=== PATIENT | female | born 1945 | race Caucasian/White ===

== ENCOUNTER → 2021-12-25 08:39 | Outpatient (CLI) | payer MEDICARE, OTHER, SELFPAY ==
[2021-12-26 09:40] LABS: Candida species Negative (Negative); Gardnerella vaginalis Negative (Negative); Trichomoas vaginalis Negative (Negative)
== END ==
PROVIDERS: PCP Physician Assistant Medical; Visit Provider Physician Assistant
DX: N89.8 Other specified noninflammatory disorders of vagina (principal)
CPT/HCPCS: 87480; 87510; 87660

== ENCOUNTER → 2022-05-12 10:03 | Outpatient (CLI) | payer MEDICARE, OTHER, SELFPAY ==
[2022-05-12 20:36] LABS: Add Manual Diff / Slide Review NO; Basophils Absolute Auto 100 /uL (0-100); Eosinophils Absolute Auto 100 /uL (0-450); Eosinophils Percent Auto 1.7 % (2-4); Hematocrit 37.4 % (36-46); Hemoglobin 12.5 g/dL (12.0-16.0); Lymphocytes Absolute Auto 1600 /uL (1100-4500); Lymphocytes Percent Auto 21.4 % (25-40); Mean Corpuscular HGB Conc 33.4 % (30-36); Mean Corpuscular Hemoglobin 31.5 PG (26-34); Mean Corpuscular Volume 94.3 fL (80-100); Monocytes Absolute Auto 600 /uL (0-900); Monocytes Percent Auto 8.9 % (3-14); Neutrophils Absolute Auto 4900 /uL (1500-7000); Platelet Count 322 X10^3/uL (150-400); Red Blood Cell Count 3.97 X10^6/uL (4.0-5.2); Red Cell Distribution Width 13.9 % (11.6-14.8); White Blood Cell Count 7.3 X10^3/uL (4.5-11.0)
[2022-05-12 20:47] LABS: Alanine Aminotransferase 22 IU/L (<35); Albumin 3.7 g/dL (3.5-5.0); Albumin Globulin Ratio 1.3 (1.0-2.8); Alkaline Phosphatase 87 U/L (38-126); Aspartate Aminotransferase 31 IU/L (14-36); BUN Creatinine Ratio 28.3 (6-22); Bilirubin Total 0.4 mg/dL (0.2-1.3); Blood Urea Nitrogen 26 mg/dL (7-17); Calcium 9.3 mg/dL (8.4-10.2); Carbon Dioxide 27 mmol/L (22-32); Chloride 103 mmol/L (98-107); Estimated Glomerular Filt Rate > 60 mL/min (>60); Globulin 2.9 g/dL (1.7-4.1); Glucose 105 mg/dL (80-110); HEMOLYSIS < 15 (0-50); Lipase 289 U/L (23-300); Potassium 4.2 mmol/L (3.4-5.1); Sodium 139 mmol/L (137-145); Total Protein 6.6 g/dL (6.3-8.2)
[2022-05-15 19:42] LABS: Interpretation Negative (Negative)
== END ==
PROVIDERS: PCP Physician Assistant Medical; Visit Provider Physician Assistant
DX: E86.0 Dehydration (principal); R10.13 Epigastric pain
CPT/HCPCS: 80053; 83013; 83690; 85025

== ENCOUNTER → 2022-06-22 09:36 | Outpatient (CLI) | payer MEDICARE, OTHER, SELFPAY ==
--- NOTE | 2022-06-22 09:41 | DI.US.S_ITS ---
PROCEDURE: US ABDOMEN COMPLETE INDICATIONS: epigastric pain x 3 weeks, hx hiatal hernia TECHNIQUE: Real-time scanning was performed of the abdominal and retroperitoneal organs, with image documentation. COMPARISON: None. FINDINGS: Liver: Liver is normal in size and homogeneous in echotexture. Gallbladder: The gallbladder wall measures 1.4 mm in diameter. No stones, sludge, pericholecystic fluid, or sonographic Levin sign. Biliary ducts: Intrahepatic bile ducts are non-dilated. Extrahepatic bile duct caliber measures 4.6 mm. Normal is 6-7 mm or less in diameter, or 10 mm or less post-cholecystectomy. Pancreas: Visualized portions of the pancreas are sonographically normal. The head and tail of the pancreas are not well characterized. Spleen: Spleen is normal in size and homogeneous in echotexture. Kidneys: Kidneys are normal in size and echotexture. Right kidney measures 9.5 cm long; left kidney measures 8.9 cm long. No hydronephrosis or nephrolithiasis. No solid masses. Aorta: Visualized aorta is normal in caliber at less than 3 cm. Iliacs: Proximal common iliac arteries are normal in caliber at less than 2.5 cm. IVC: Intrahepatic inferior vena cava is patent. Miscellaneous: No free abdominal fluid. IMPRESSION: 1. No cholelithiasis or findings to suggest choledocholithiasis or acute cholecystitis. Dictated by: Debbie Lyn M.D. on 06/22/2022 at 10:44 Approved by: Debbie Lyn M.D. on 06/22/2022 at 10:45
== END ==
PROVIDERS: PCP Physician Assistant; Referring Provider Physician Assistant; Visit Provider Physician Assistant
DX: R10.13 Epigastric pain (principal); K44.9 Diaphragmatic hernia without obstruction or gangrene
CPT/HCPCS: 76700

== ENCOUNTER → 2022-09-07 12:16 | Outpatient (CLI) | payer MEDICARE, OTHER, SELFPAY ==
[2022-09-07 19:29] LABS: Add Manual Diff / Slide Review NO; Basophils Absolute Auto 0 /uL (0-100); Basophils Percent Auto 0.6 % (0-2); Eosinophils Absolute Auto 100 /uL (0-450); Hematocrit 36.1 % (36-46); Lymphocytes Absolute Auto 1800 /uL (1100-4500); Lymphocytes Percent Auto 24.7 % (25-40); Mean Corpuscular HGB Conc 33.3 % (30-36); Mean Corpuscular Hemoglobin 31.3 PG (26-34); Monocytes Absolute Auto 600 /uL (0-900); Monocytes Percent Auto 8.5 % (3-14); Neutrophils Absolute Auto 4800 /uL (1500-7000); Neutrophils Percent Auto 64.2 % (50-75); Platelet Count 311 X10^3/uL (150-400); Red Blood Cell Count 3.84 X10^6/uL (4.0-5.2); Red Cell Distribution Width 13.4 % (11.6-14.8); White Blood Cell Count 7.5 X10^3/uL (4.5-11.0)
[2022-09-07 19:37] LABS: NT-proBNP (BNP-Adult 18+) 489 pg/mL (<450)
[2022-09-07 19:40] LABS: Alanine Aminotransferase 24 IU/L (<35); Aspartate Aminotransferase 32 IU/L (14-36); Blood Urea Nitrogen 23 mg/dL (7-17)
[2022-09-07 20:06] LABS: Thyroid Stimulating Hormone 2.79 uIU/mL (0.47-4.68)
[2022-09-07 20:10] LABS: Ferritin 43 ng/mL (11-264)
[2022-09-07 20:17] LABS: Erythrocyte Sedimentation Rate 33 MM/HR (0-20)
[2022-09-11 16:48] LABS: ANA Screen, IFA Positive (.)
== END ==
PROVIDERS: PCP Physician Assistant; Visit Provider Physician Assistant Medical
DX: L65.9 Nonscarring hair loss, unspecified (principal); R60.9 Edema, unspecified; L01.01 Non-bullous impetigo; L29.8 Other pruritus
CPT/HCPCS: 82728; 83880; 84443; 84450; 84460; 84520; 85025; 85651; 86038

== ENCOUNTER → 2022-10-14 12:49 | Outpatient (CLI) | payer MEDICARE, OTHER, SELFPAY | PROVIDERS: PCP Physician Assistant; Visit Provider Surgery | DX: R60.0 Localized edema (principal); M71.22 Synovial cyst of popliteal space [Baker], left knee; M71.21 Synovial cyst of popliteal space [Baker], right knee; I87.2 Venous insufficiency (chronic) (peripheral); L97.812 Non-pressure chronic ulcer of other part of right lower leg with fat layer exposed; I10 Essential (primary) hypertension | CPT/HCPCS: 11042; 87070; 87075; 87205; 93970; 99203; 99214 ==

== ENCOUNTER → 2022-10-14 14:21 | Outpatient (CLI) | payer MEDICARE, OTHER, SELFPAY ==
--- NOTE | 2022-10-14 14:22 | DI.US.S_ITS ---
PROCEDURE: US PERIPH VENOUS LOW EXTREM BI INDICATIONS: intermittent edema TECHNIQUE: Real-time imaging, as well as color and pulse Doppler interrogation, were performed of the deep veins of both legs from the inguinal ligament to the popliteal fossa. COMPARISON: None. FINDINGS: Right: The common femoral, femoral and popliteal veins are normally compressible, and free of intraluminal thrombus. Color and pulse Doppler demonstrate normal phasic intravascular flow. There is normal augmentation response to distal compression maneuver. A right-sided Gaviria's cyst is seen that measures 5.6 x 1.4 x 1.2 cm. Left: The common femoral, femoral and popliteal veins are normally compressible, and free of intraluminal thrombus. Color and pulse Doppler demonstrate normal phasic intravascular flow. There is normal augmentation response to distal compression maneuver. A left-sided Gaviria's cyst is seen that measures 4.4 x 1 x 2.6 cm. IMPRESSION: Negative for deep venous thrombosis. 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 Dictated by: Jose Luis Monreal M.D. on 10/14/2022 at 14:07 Approved by: Jose Luis Monreal M.D. on 10/14/2022 at 14:07
== END ==
PROVIDERS: PCP Physician Assistant; Referring Provider Physician Assistant; Visit Provider Physician Assistant
DX: R60.0 Localized edema (principal); M71.22 Synovial cyst of popliteal space [Baker], left knee; M71.21 Synovial cyst of popliteal space [Baker], right knee
CPT/HCPCS: 93970

== ENCOUNTER → 2022-11-24 08:34 | Outpatient (CLI) | payer MEDICARE, OTHER, SELFPAY ==
[2022-11-26 16:35] LABS: Candida species Negative (Negative); Gardnerella vaginalis Negative (Negative); Trichomoas vaginalis Negative (Negative)
== END ==
PROVIDERS: PCP Physician Assistant; Visit Provider Physician Assistant
DX: N89.8 Other specified noninflammatory disorders of vagina (principal)
CPT/HCPCS: 87480; 87510; 87660

== ENCOUNTER → 2023-09-14 10:38 | Outpatient (CLI) | payer MEDICARE, OTHER, SELFPAY ==
[2023-09-14 19:37] LABS: HEMOLYSIS 26 (0-50)
[2023-09-14 19:42] LABS: Alanine Aminotransferase 23 IU/L (<35); Albumin 3.4 g/dL (3.5-5.0); Albumin Globulin Ratio 1.2 (1.0-2.8); Alkaline Phosphatase 95 U/L (38-126); Aspartate Aminotransferase 37 IU/L (14-36); BUN Creatinine Ratio 29.3 (6-22); Bilirubin Total 0.7 mg/dL (0.2-1.3); Blood Urea Nitrogen 27 mg/dL (7-17); Carbon Dioxide 26 mmol/L (22-32); Chloride 104 mmol/L (98-107); Estimated Glomerular Filt Rate > 60 mL/min (>60); Globulin 2.9 g/dL (1.7-4.1); Glucose 117 mg/dL (80-110); Potassium 4.6 mmol/L (3.4-5.1); Sodium 137 mmol/L (137-145); Total Protein 6.3 g/dL (6.3-8.2); Uric Acid 6.1 mg/dL (2.5-6.2)
[2023-09-14 19:50] LABS: Add Manual Diff / Slide Review NO; Basophils Absolute Auto 100 /uL (0-100); Basophils Percent Auto 0.9 % (0-2); Eosinophils Absolute Auto 200 /uL (0-450); Eosinophils Percent Auto 2.2 % (2-4); Hematocrit 34.8 % (36-46); Hemoglobin 11.7 g/dL (12.0-16.0); Lymphocytes Absolute Auto 1600 /uL (1100-4500); Lymphocytes Percent Auto 23.4 % (25-40); Mean Corpuscular HGB Conc 33.6 % (30-36); Mean Corpuscular Hemoglobin 31.8 PG (26-34); Mean Corpuscular Volume 94.7 fL (80-100); Monocytes Absolute Auto 500 /uL (0-900); Monocytes Percent Auto 7.4 % (3-14); Neutrophils Absolute Auto 4500 /uL (1500-7000); Neutrophils Percent Auto 66.1 % (50-75); Platelet Count 265 X10^3/uL (150-400); Red Blood Cell Count 3.67 X10^6/uL (4.0-5.2); Red Cell Distribution Width 13.2 % (11.6-14.8); White Blood Cell Count 6.9 X10^3/uL (4.5-11.0)
[2023-09-14 20:13] LABS: Erythrocyte Sedimentation Rate 32 MM/HR (0-20)
[2023-09-14 20:18] LABS: C-Reactive Protein Quant 0.6 mg/dL (<1.0)
[2023-09-14 20:19] LABS: Rheumatoid Factor 14.5 IU/mL (<12.0)
[2023-09-20 22:07] LABS: ANA Screen, IFA Negative (.)
== END ==
PROVIDERS: PCP Family Medicine; Visit Provider Family Medicine
DX: M25.641 Stiffness of right hand, not elsewhere classified (principal); M25.541 Pain in joints of right hand; M25.542 Pain in joints of left hand; M25.642 Stiffness of left hand, not elsewhere classified; I10 Essential (primary) hypertension
CPT/HCPCS: 80053; 84550; 85025; 85651; 86038; 86140; 86430

== ENCOUNTER → 2023-09-27 14:30 | Outpatient (CLI) | payer MEDICARE, OTHER, SELFPAY ==
[2023-10-01 19:10] LABS: C difficie Toxins A and B, EIA Negative (Negative)
== END ==
PROVIDERS: PCP Family Medicine; Visit Provider Family Medicine
DX: R10.31 Right lower quadrant pain (principal); Z87.19 Personal history of other diseases of the digestive system; R19.7 Diarrhea, unspecified
CPT/HCPCS: 87045; 87324; 87493; 87899

== ENCOUNTER → 2023-10-11 14:15 | Outpatient (CLI) | payer MEDICARE, OTHER, SELFPAY ==
--- NOTE | 2023-10-11 14:17 | DI.CT.S_ITS ---
PROCEDURE: CT ABDOMEN PELVIS W CON INDICATIONS: RLQ abd pain, chronic. h/o crohn's with multiple surgeries TECHNIQUE: After the administration of intravenous contrast, axial sections acquired from the lung bases to the pubic symphysis. Coronal and sagittal reformats were performed. For radiation dose reduction, the following was used: automated exposure control, adjustment of mA and/or kV according to patient size. COMPARISON: None. FINDINGS: Image quality: Excellent. Lung bases: Right middle lobe and lingular atelectasis. Heart: No significant findings. Miscellaneous: Bilateral breast implants are in place. ABDOMEN: Liver: Unremarkable. Gallbladder: Unremarkable. Biliary ducts: Unremarkable. Pancreas: Unremarkable. Spleen: Unremarkable. Adrenal Glands: Unremarkable. Kidneys and Ureters: Unremarkable. Stomach and Bowel: Stomach is unremarkable. No small bowel obstruction. Patent anastomosis at the cecum. Rectosigmoid diverticulosis without CT evidence of acute diverticulitis. Peritoneum: No abnormal intraperitoneal fluid. No free air. Ventral Wall: No hernias. Abdominal Nodes: No retroperitoneal or mesenteric adenopathy by size criteria. Vessels: Aorta and inferior vena cava are normal in size. PELVIS: Pelvic Organs: Unremarkable. Bladder: Unremarkable. Pelvic Nodes: No enlarged lymph nodes. Miscellaneous: No hernias are seen. Bones: No acute or suspicious osseous abnormalities. Grade 1 anterolisthesis of L5 on S1. IMPRESSION: No acute findings in the abdomen or pelvis to explain patient's symptoms. Rectosigmoid diverticulosis without CT evidence of acute diverticulitis. Approved by: Maria Elena Dodd M.D. on 10/11/2023 at 21:48
== END ==
PROVIDERS: PCP Family Medicine; Referring Provider Family Medicine; Visit Provider Family Medicine
DX: K57.30 Diverticulosis of large intestine without perforation or abscess without bleeding (principal); Z87.19 Personal history of other diseases of the digestive system; R10.31 Right lower quadrant pain
CPT/HCPCS: 74177; Q9967

== ENCOUNTER → 2023-10-19 10:09 | Outpatient (CLI) | payer MEDICARE, OTHER, SELFPAY ==
[2023-10-19 20:01] LABS: Add Manual Diff / Slide Review NO; Basophils Absolute Auto 0 /uL (0-100); Basophils Percent Auto 0.7 % (0-2); Eosinophils Absolute Auto 400 /uL (0-450); Eosinophils Percent Auto 7.1 % (2-4); Hematocrit 35.2 % (36-46); Hemoglobin 11.9 g/dL (12.0-16.0); Lymphocytes Absolute Auto 1100 /uL (1100-4500); Lymphocytes Percent Auto 19.4 % (25-40); Mean Corpuscular HGB Conc 33.8 % (30-36); Mean Corpuscular Hemoglobin 32.3 PG (26-34); Mean Corpuscular Volume 95.5 fL (80-100); Monocytes Absolute Auto 400 /uL (0-900); Monocytes Percent Auto 7.1 % (3-14); Neutrophils Absolute Auto 3900 /uL (1500-7000); Neutrophils Percent Auto 65.7 % (50-75); Platelet Count 294 X10^3/uL (150-400); Red Blood Cell Count 3.68 X10^6/uL (4.0-5.2); Red Cell Distribution Width 13.5 % (11.6-14.8); White Blood Cell Count 5.9 X10^3/uL (4.5-11.0)
[2023-10-19 20:16] LABS: BUN Creatinine Ratio 37.1 (6-22); Blood Urea Nitrogen 33 mg/dL (7-17); Calcium 9.3 mg/dL (8.4-10.2); Carbon Dioxide 29 mmol/L (22-32); Chloride 102 mmol/L (98-107); Estimated Glomerular Filt Rate > 60 mL/min (>60); Glucose 135 mg/dL (80-110); HEMOLYSIS < 15 (0-50); Iron 122 ug/dL (37-170); Potassium 4.4 mmol/L (3.4-5.1); Sodium 136 mmol/L (137-145); Uric Acid 7.4 mg/dL (2.5-6.2)
[2023-10-19 20:19] LABS: Rheumatoid Factor 12.2 IU/mL (<12.0)
[2023-10-19 20:27] LABS: Percent Iron Saturation 48 % (15-50); Total Iron Binding Capacity 256 ug/dL (265-497); Transferrin 225 mg/dL (206-381)
[2023-10-19 20:45] LABS: Erythrocyte Sedimentation Rate 32 MM/HR (0-20)
[2023-10-19 20:50] LABS: Ferritin 38 ng/mL (11-264)
[2023-10-19 23:04] LABS: Folate > 20.0 ng/mL (2.76-20.0); HEMOLYSIS < 15 (0-50); Vitamin B12 Reflex MMA if <400 354 pg/mL (239-931)
[2023-10-24 18:07] LABS: ANA Screen, IFA Negative (.)
[2023-10-25 09:55] LABS: Methylmalonic Acid,Serum 784 nmol/L (0-378)
== END ==
PROVIDERS: PCP Family Medicine; Visit Provider Family Medicine
DX: D64.9 Anemia, unspecified (principal); Z87.19 Personal history of other diseases of the digestive system; M25.641 Stiffness of right hand, not elsewhere classified; M25.642 Stiffness of left hand, not elsewhere classified; M25.541 Pain in joints of right hand; M25.542 Pain in joints of left hand; I10 Essential (primary) hypertension
CPT/HCPCS: 80048; 82607; 82728; 82746; 83540; 83550; 83921; 84550; 85025; 85045; 85651; 86038; 86430

== ENCOUNTER → 2024-01-05 12:30 | Outpatient (CLI) | payer MEDICARE, OTHER, SELFPAY ==
[2024-01-05 19:26] LABS: Hemoglobin A1C% w Est Avg Glu 5.1 % (4.0-6.0)
[2024-01-05 19:31] LABS: Add Manual Diff / Slide Review NO; Basophils Absolute Auto 100 /uL (0-100); Basophils Percent Auto 0.8 % (0-2); Eosinophils Absolute Auto 500 /uL (0-450); Eosinophils Percent Auto 4.9 % (2-4); Hematocrit 34.9 % (36-46); Hemoglobin 11.7 g/dL (12.0-16.0); Lymphocytes Absolute Auto 1900 /uL (1100-4500); Lymphocytes Percent Auto 19.2 % (25-40); Mean Corpuscular HGB Conc 33.6 % (30-36); Mean Corpuscular Hemoglobin 31.9 PG (26-34); Monocytes Absolute Auto 700 /uL (0-900); Monocytes Percent Auto 7.7 % (3-14); Neutrophils Absolute Auto 6500 /uL (1500-7000); Neutrophils Percent Auto 67.4 % (50-75); Platelet Count 326 X10^3/uL (150-400); Red Blood Cell Count 3.67 X10^6/uL (4.0-5.2); Red Cell Distribution Width 13.9 % (11.6-14.8); White Blood Cell Count 9.7 X10^3/uL (4.5-11.0)
[2024-01-05 20:08] LABS: Vitamin B12 Reflex MMA if <400 > 1000 pg/mL (239-931)
[2024-01-10 18:08] LABS: CCP Antibodies IgG/IgA 7 units (0-19)
== END ==
PROVIDERS: PCP Family Medicine; Visit Provider Family Medicine
DX: R73.9 Hyperglycemia, unspecified (principal); R76.8 Other specified abnormal immunological findings in serum; D64.9 Anemia, unspecified; R19.7 Diarrhea, unspecified; E53.8 Deficiency of other specified B group vitamins
CPT/HCPCS: 82607; 83036; 85025; 86200

== ENCOUNTER → 2024-02-10 11:23 | Outpatient (CLI) | payer MEDICARE, OTHER, SELFPAY ==
[2024-02-10 19:09] LABS: BUN Creatinine Ratio 28.4 (6-22); Blood Urea Nitrogen 23 mg/dL (7-17); Calcium 9.3 mg/dL (8.4-10.2); Carbon Dioxide 26 mmol/L (22-32); Chloride 108 mmol/L (98-107); Estimated Glomerular Filt Rate > 60 mL/min (>60); Glucose 66 mg/dL (80-110); HEMOLYSIS < 15 (0-50); Potassium 3.8 mmol/L (3.4-5.1); Sodium 137 mmol/L (137-145)
[2024-02-10 19:11] LABS: Add Manual Diff / Slide Review NO; Basophils Absolute Auto 0 /uL (0-100); Basophils Percent Auto 0.4 % (0-2); Eosinophils Absolute Auto 400 /uL (0-450); Eosinophils Percent Auto 5.8 % (2-4); Hematocrit 34.8 % (36-46); Hemoglobin 11.8 g/dL (12.0-16.0); Lymphocytes Absolute Auto 1400 /uL (1100-4500); Lymphocytes Percent Auto 20.8 % (25-40); Mean Corpuscular HGB Conc 33.9 % (30-36); Mean Corpuscular Hemoglobin 32.8 PG (26-34); Mean Corpuscular Volume 96.7 fL (80-100); Monocytes Absolute Auto 600 /uL (0-900); Neutrophils Absolute Auto 4500 /uL (1500-7000); Platelet Count 301 X10^3/uL (150-400); Red Cell Distribution Width 13.1 % (11.6-14.8); White Blood Cell Count 6.9 X10^3/uL (4.5-11.0)
[2024-02-10 19:27] LABS: Vitamin D 25 Hydroxy (D3) 46.7 ng/mL (30.0-100.0)
== END ==
PROVIDERS: PCP Family Medicine; Visit Provider Family Medicine
DX: Z79.899 Other long term (current) drug therapy (principal); M81.0 Age-related osteoporosis without current pathological fracture
CPT/HCPCS: 80048; 82306; 85025

== ENCOUNTER → 2024-04-16 09:47 | Outpatient (CLI) | payer MEDICARE, OTHER, SELFPAY ==
[2024-04-19 12:16] LABS: Fecal Immunochemical Test Positive (Negative)
== END ==
LOC: LAB 07-02 09:43
PROVIDERS: PCP Family Medicine; Referring Provider Family Medicine; Visit Provider Family Medicine
DX: Z12.11 Encounter for screening for malignant neoplasm of colon (principal); D64.9 Anemia, unspecified; K62.5 Hemorrhage of anus and rectum
CPT/HCPCS: 82274

== ENCOUNTER → 2024-04-24 12:12 | Outpatient (CLI) | payer MEDICARE, OTHER, SELFPAY ==
[2024-04-24 20:50] LABS: Add Manual Diff / Slide Review NO; Basophils Absolute Auto 0 /uL (0-100); Basophils Percent Auto 0.4 % (0-2); Eosinophils Absolute Auto 300 /uL (0-450); Eosinophils Percent Auto 4.6 % (2-4); Hemoglobin 11.8 g/dL (12.0-16.0); Lymphocytes Absolute Auto 1500 /uL (1100-4500); Mean Corpuscular HGB Conc 33.6 % (30-36); Mean Corpuscular Hemoglobin 32.2 PG (26-34); Mean Corpuscular Volume 95.8 fL (80-100); Monocytes Absolute Auto 500 /uL (0-900); Monocytes Percent Auto 7.6 % (3-14); Neutrophils Absolute Auto 3900 /uL (1500-7000); Neutrophils Percent Auto 63.4 % (50-75); Platelet Count 323 X10^3/uL (150-400); Red Blood Cell Count 3.66 X10^6/uL (4.0-5.2); Red Cell Distribution Width 13.2 % (11.6-14.8); White Blood Cell Count 6.1 X10^3/uL (4.5-11.0)
[2024-04-24 20:52] LABS: Reticulocyte Count, Percent 0.9 % (1.1-2.6)
[2024-04-24 20:55] LABS: HEMOLYSIS < 15 (0-50); Iron 113 ug/dL (37-170)
[2024-04-24 21:07] LABS: Percent Iron Saturation 38 % (15-50); Total Iron Binding Capacity 300 ug/dL (265-497); Transferrin 235 mg/dL (206-381)
[2024-04-24 21:36] LABS: Ferritin 21 ng/mL (11-264)
[2024-04-25 08:29] LABS: TSH w/ Reflex to FT4 2.56 uIU/mL (0.47-4.68)
== END ==
PROVIDERS: PCP Family Medicine; Visit Provider Family Medicine
DX: D64.9 Anemia, unspecified; I10 Essential (primary) hypertension; K62.5 Hemorrhage of anus and rectum
CPT/HCPCS: 82728; 83540; 83550; 84443; 85025; 85045

== ENCOUNTER → 2024-07-24 13:34 | Outpatient (CLI) | payer MEDICARE, OTHER, SELFPAY ==
[2024-07-24 13:53] LABS: Add Manual Diff / Slide Review NO; Basophils Absolute Auto 100 /uL (0-100); Basophils Percent Auto 0.7 % (0-2); Eosinophils Absolute Auto 300 /uL (0-450); Eosinophils Percent Auto 4.3 % (2-4); Hemoglobin 12.2 g/dL (12.0-16.0); Lymphocytes Absolute Auto 2000 /uL (1100-4500); Lymphocytes Percent Auto 25.6 % (25-40); Mean Corpuscular Hemoglobin 32.3 PG (26-34); Mean Corpuscular Volume 94.9 fL (80-100); Monocytes Absolute Auto 600 /uL (0-900); Monocytes Percent Auto 8.1 % (3-14); Neutrophils Absolute Auto 4800 /uL (1500-7000); Neutrophils Percent Auto 61.3 % (50-75); Platelet Count 315 X10^3/uL (150-400); Red Blood Cell Count 3.79 X10^6/uL (4.0-5.2); Red Cell Distribution Width 13.4 % (11.6-14.8); White Blood Cell Count 7.8 X10^3/uL (4.5-11.0)
[2024-07-24 13:59] LABS: Reticulocyte Count, Percent 0.8 % (1.1-2.6)
[2024-07-24 14:48] LABS: HEMOLYSIS < 15 (0-50); Iron 77 ug/dL (37-170)
[2024-07-24 15:00] LABS: Percent Iron Saturation 27 % (15-50); Total Iron Binding Capacity 288 ug/dL (265-497); Transferrin 237 mg/dL (206-381)
[2024-07-24 15:35] LABS: Alanine Aminotransferase 17 IU/L (<35); Albumin 3.7 g/dL (3.5-5.0); Albumin Globulin Ratio 1.2 (1.0-2.8); Alkaline Phosphatase 118 U/L (38-126); Aspartate Aminotransferase 47 IU/L (14-36); BUN Creatinine Ratio 33.6 (6-22); Bilirubin Total 0.3 mg/dL (0.2-1.3); Blood Urea Nitrogen 42 mg/dL (7-17); Calcium 9.3 mg/dL (8.4-10.2); Carbon Dioxide 24 mmol/L (22-32); Chloride 107 mmol/L (98-107); Estimated Glomerular Filt Rate 44 mL/min (>60); Glucose 79 mg/dL (80-110); HEMOLYSIS 19 (0-50); Potassium 4.3 mmol/L (3.4-5.1); Sodium 138 mmol/L (137-145); Total Protein 6.7 g/dL (6.3-8.2)
[2024-07-24 16:10] LABS: Ferritin 27 ng/mL (11-264)
[2024-07-25 02:24] LABS: Lactate Dehydrogenase 264 U/L (120-246)
[2024-07-25 04:40] LABS: Haptoglobin 191 mg/dL (42-346)
== END ==
PROVIDERS: PCP Family Medicine; Referring Provider Family Medicine; Visit Provider Family Medicine
DX: R73.9 Hyperglycemia, unspecified (principal); K50.90 Crohn's disease, unspecified, without complications; E53.8 Deficiency of other specified B group vitamins; I10 Essential (primary) hypertension; D64.9 Anemia, unspecified
CPT/HCPCS: 36415; 80053; 82728; 83010; 83540; 83550; 83615; 85025; 85045

== ENCOUNTER → 2024-08-22 13:49 | Outpatient (CLI) | payer MEDICARE, OTHER, SELFPAY ==
[2024-08-22 20:48] LABS: Alanine Aminotransferase 18 IU/L (<35); Albumin 3.7 g/dL (3.5-5.0); Albumin Globulin Ratio 1.1 (1.0-2.8); Alkaline Phosphatase 109 U/L (38-126); Aspartate Aminotransferase 88 IU/L (14-36); Bilirubin Total 0.5 mg/dL (0.2-1.3); Blood Urea Nitrogen 34 mg/dL (7-17); Calcium 9.5 mg/dL (8.4-10.2); Carbon Dioxide 21 mmol/L (22-32); Chloride 105 mmol/L (98-107); Estimated Glomerular Filt Rate 41 mL/min (>60); Globulin 3.4 g/dL (1.7-4.1); Glucose 110 mg/dL (80-110); HEMOLYSIS 25 (0-50); Potassium 3.7 mmol/L (3.4-5.1); Sodium 135 mmol/L (137-145); Total Protein 7.1 g/dL (6.3-8.2)
== END ==
PROVIDERS: PCP Family Medicine; Visit Provider Family Medicine
DX: R94.4 Abnormal results of kidney function studies (principal)
CPT/HCPCS: 80053

== ENCOUNTER → 2024-08-23 16:08 | Outpatient (CLI) | payer MEDICARE, OTHER, SELFPAY | PROVIDERS: PCP Family Medicine; Visit Provider Family Medicine | DX: R39.89 Other symptoms and signs involving the genitourinary system (principal); R94.4 Abnormal results of kidney function studies | CPT/HCPCS: 87086 ==

== ENCOUNTER → 2024-09-11 11:05 | Outpatient (CLI) | payer MEDICARE, OTHER, SELFPAY ==
[2024-09-11 19:54] LABS: Add Manual Diff / Slide Review NO; Basophils Absolute Auto 100 /uL (0-100); Basophils Percent Auto 0.7 % (0-2); Eosinophils Absolute Auto 600 /uL (0-450); Eosinophils Percent Auto 8.8 % (2-4); Hematocrit 34.5 % (36-46); Hemoglobin 11.7 g/dL (12.0-16.0); Lymphocytes Absolute Auto 1500 /uL (1100-4500); Lymphocytes Percent Auto 20.8 % (25-40); Mean Corpuscular HGB Conc 33.9 % (30-36); Mean Corpuscular Hemoglobin 32.4 PG (26-34); Mean Corpuscular Volume 95.4 fL (80-100); Monocytes Absolute Auto 400 /uL (0-900); Monocytes Percent Auto 6.3 % (3-14); Neutrophils Absolute Auto 4400 /uL (1500-7000); Neutrophils Percent Auto 63.4 % (50-75); Platelet Count 316 X10^3/uL (150-400); Red Blood Cell Count 3.61 X10^6/uL (4.0-5.2); Red Cell Distribution Width 13.3 % (11.6-14.8)
[2024-09-11 20:09] LABS: BUN Creatinine Ratio 27.6 (6-22); Blood Urea Nitrogen 29 mg/dL (7-17); Calcium 9.6 mg/dL (8.4-10.2); Carbon Dioxide 24 mmol/L (22-32); Chloride 106 mmol/L (98-107); Estimated Glomerular Filt Rate 54 mL/min (>60); Glucose 108 mg/dL (80-110); HEMOLYSIS < 15 (0-50); Potassium 3.8 mmol/L (3.4-5.1); Sodium 135 mmol/L (137-145)
[2024-09-11 20:44] LABS: Ferritin 27 ng/mL (11-264)
[2024-09-13 19:07] LABS: Free Kappa Lt Chains, Serum 45.8 mg/L (3.3-19.4)
== END ==
PROVIDERS: PCP Family Medicine; Visit Provider Family Medicine
DX: R94.4 Abnormal results of kidney function studies (principal); R79.89 Other specified abnormal findings of blood chemistry; D64.9 Anemia, unspecified; I10 Essential (primary) hypertension; R39.89 Other symptoms and signs involving the genitourinary system; M25.541 Pain in joints of right hand; M25.542 Pain in joints of left hand; Z87.19 Personal history of other diseases of the digestive system
CPT/HCPCS: 80048; 82728; 83883; 84155; 84165; 85025

== ENCOUNTER → 2024-11-06 15:09 | Outpatient (CLI) | payer MEDICARE, OTHER, SELFPAY ==
--- NOTE | 2024-11-06 15:10 | DI.RAD.S_ITS ---
PROCEDURE: XR DEXA AXIAL SKELETON INDICATIONS: osteoporosis COMPARISON: None. FINDINGS: Lumbar Spine (L1 excluded due to increased density): Bone mineral density 1.019 g/cm2, T score -0.3, normal. Left Hip: Bone mineral density 0.742 g/cm2, T score -1.6, osteopenia. Left Femoral Neck: Bone mineral density 0.604 g/cm2, T score -2.2, osteopenia. Right Hip: Bone mineral density 0.776 g/cm2, T score -1.4, osteopenia. Right Femoral Neck: Bone mineral density 0.669 g/cm2, T score -1.6, osteopenia. Fracture Risk Calculation (when applicable): Parental fracture noted. 10-year fracture risk of a major osteoporotic fracture 29 percent and of a hip fracture 19 percent. (T score greater or equal to -1.0 to: NORMAL) (T score from -1.1 to -2.4: OSTEOPENIA) (T score less than or equal to -2.5: OSTEOPOROSIS) IMPRESSION: Osteopenia. Follow-up guidelines as follows: Osteoporosis: Consider a repeat DEXA and Vertebral Fracture Assessment (VFA) exam in 2 years or sooner if medically necessary, to reassess this patient's status. Osteopenia: Consider a repeat DEXA in 2-3 years to reassess this patient's status, or if there is a new clinical indication. Normal: Consider a repeat DEXA in 5 years or sooner, or if there is a new clinical indication. All treatment decisions require clinical judgment and consideration of individual patient factors, including patient preferences, comorbidities, previous drug use, risk factors not captured in the FRAX model (e.g., frailty, falls, vitamin D deficiency, increased bone turnover, interval significant decline in bone density ) and possible under- or over-estimation of fracture risk by FRAX. In addition, the NOF Guide recommends that FDA-approved medical therapies be considered in postmenopausal women and men age >= 50 years with a: * Hip or vertebral (clinical or morphometric) fracture * T-score of <=-2.5 at the spine or hip * Ten-year fracture probability by FRAX of >= 3% for hip fracture or >=20% for major osteoporotic fracture. People with diagnosed cases of osteoporosis or at high risk for fracture should have regular bone mineral density tests. For patients eligible for Medicare, routine testing is allowed once every 2 years. The testing frequency can be increased to one year for patients who have rapidly progressing disease, those who are receiving or discontinuing medical therapy to restore bone mass, or have additional risk factors. Dictated by: Sam Olvera M.D. on 11/08/2024 at 10:27 Approved by: Sam Olvera M.D. on 11/08/2024 at 10:32
--- NOTE | 2024-11-06 15:10 | DI.MG.S_ITS ---
BILATERAL DIGITAL SCREENING MAMMOGRAM 3D/2D WITH CAD WITH AUGMENTATION: 11/06/2024 CLINICAL: Routine screening. Family history of breast cancer. Comparison is made to exams dated: 03/12/2022 mammogram, 11/11/2020 mammogram, 07/12/2018 mammogram, and 12/20/2016 mammogram - outside location. There are scattered areas of fibroglandular density (category b / 25%-50% glandular tissue). Current study was also evaluated with a Computer Aided Detection (CAD) system. Bilateral breast implants are present. No significant masses, calcifications, or other findings are seen in either breast. There has been no significant interval change. IMPRESSION: NEGATIVE There is no mammographic evidence of malignancy. A 1 year screening mammogram is recommended. Based on the Tyrer Cuzick model (a risk assessment model) the patient's lifetime risk is 4.4% and her 10 year risk is 0.0%. According to the ACR, ACS, and NCCN guidelines, an annual breast MRI exam along with mammogram is recommended if the patient's lifetime risk is 20% or greater. This exam was interpreted at Station ID: [id number]. NOTE: For mammograms, a report in lay terms will be sent to the patient. Approximately 15% of breast malignancies will not be visualized mammographically. In the management of a palpable breast mass, a negative mammogram must not discourage biopsy of a clinically suspicious lesion. Electronically Signed By: Gagan pires/bushra:11/08/2024 07:42:47 letter sent: Normal Exam ACR BI-RADS Category 1: Negative
== END ==
PROVIDERS: PCP Family Medicine; Referring Provider Family Medicine; Visit Provider Family Medicine
DX: Z12.31 Encounter for screening mammogram for malignant neoplasm of breast (principal); M81.0 Age-related osteoporosis without current pathological fracture; Z80.3 Family history of malignant neoplasm of breast
CPT/HCPCS: 77063; 77067; 77080

== ENCOUNTER → 2024-11-16 09:28 | Outpatient (CLI) | payer MEDICARE, OTHER, SELFPAY ==
[2024-11-16 21:03] LABS: Hematocrit 35.4 % (36-46); Hemoglobin 11.9 g/dL (12.0-16.0); Iron 90 ug/dL (37-170); Mean Corpuscular HGB Conc 33.5 % (30-36); Mean Corpuscular Hemoglobin 31.8 PG (26-34); Platelet Count 302 X10^3/uL (150-400); Red Blood Cell Count 3.73 X10^6/uL (4.0-5.2); Red Cell Distribution Width 13.2 % (11.6-14.8); White Blood Cell Count 5.8 X10^3/uL (4.5-11.0)
[2024-11-16 21:04] LABS: Alanine Aminotransferase 20 IU/L (<35); Albumin 3.7 g/dL (3.5-5.0); Albumin Globulin Ratio 1.4 (1.0-2.8); Alkaline Phosphatase 94 U/L (38-126); Aspartate Aminotransferase 38 IU/L (14-36); BUN Creatinine Ratio 25.4 (6-22); Bilirubin Total 0.4 mg/dL (0.2-1.3); Blood Urea Nitrogen 34 mg/dL (7-17); Calcium 9.9 mg/dL (8.4-10.2); Carbon Dioxide 25 mmol/L (22-32); Chloride 105 mmol/L (98-107); Estimated Glomerular Filt Rate 40 mL/min (>60); Globulin 2.6 g/dL (1.7-4.1); Glucose 78 mg/dL (80-110); HEMOLYSIS < 15 (0-50); Lactate Dehydrogenase 210 U/L (120-246); Potassium 3.9 mmol/L (3.4-5.1); Sodium 138 mmol/L (137-145); Total Protein 6.3 g/dL (6.3-8.2)
[2024-11-16 21:19] LABS: Neutrophils Absolute Manual 2900 /uL (3000-5900); RBC Morphology Normal Morphology; Total Cells Counted 100
[2024-11-16 21:23] LABS: Vitamin D 25 Hydroxy (D3) 30.8 ng/mL (30.0-100.0)
[2024-11-16 21:40] LABS: Ferritin 20 ng/mL (11-264)
[2024-11-18 08:10] LABS: Haptoglobin 133 mg/dL (42-346)
== END ==
PROVIDERS: PCP Family Medicine; Referring Provider Family Medicine; Visit Provider Family Medicine
DX: R79.89 Other specified abnormal findings of blood chemistry (principal); M81.0 Age-related osteoporosis without current pathological fracture; R94.4 Abnormal results of kidney function studies; I10 Essential (primary) hypertension; D64.9 Anemia, unspecified
CPT/HCPCS: 80053; 82306; 82728; 83010; 83540; 83615; 85025

== ENCOUNTER → 2024-12-11 12:17 | Outpatient (CLI) | payer MEDICARE, OTHER, SELFPAY ==
[2024-12-11 18:33] LABS: Add Manual Diff / Slide Review NO; Basophils Absolute Auto 0 /uL (0-100); Basophils Percent Auto 0.4 % (0-2); Eosinophils Absolute Auto 100 /uL (0-450); Hematocrit 36.4 % (36-46); Hemoglobin 12.2 g/dL (12.0-16.0); Lymphocytes Absolute Auto 1800 /uL (1100-4500); Lymphocytes Percent Auto 25.4 % (25-40); Mean Corpuscular HGB Conc 33.5 % (30-36); Mean Corpuscular Hemoglobin 31.7 PG (26-34); Mean Corpuscular Volume 94.6 fL (80-100); Monocytes Absolute Auto 500 /uL (0-900); Monocytes Percent Auto 6.5 % (3-14); Neutrophils Absolute Auto 4600 /uL (1500-7000); Neutrophils Percent Auto 65.7 % (50-75); Platelet Count 348 X10^3/uL (150-400); Red Blood Cell Count 3.85 X10^6/uL (4.0-5.2); Red Cell Distribution Width 13.4 % (11.6-14.8); White Blood Cell Count 7.1 X10^3/uL (4.5-11.0)
[2024-12-11 18:47] LABS: BUN Creatinine Ratio 26.3 (6-22); Blood Urea Nitrogen 36 mg/dL (7-17); Calcium 9.8 mg/dL (8.4-10.2); Carbon Dioxide 26 mmol/L (22-32); Chloride 104 mmol/L (98-107); Estimated Glomerular Filt Rate 39 mL/min (>60); Glucose 106 mg/dL (80-110); HEMOLYSIS 26 (0-50); Potassium 4.2 mmol/L (3.4-5.1); Sodium 138 mmol/L (137-145)
[2024-12-11 19:18] LABS: Ferritin 23 ng/mL (11-264)
== END ==
PROVIDERS: PCP Family Medicine; Visit Provider Family Medicine
DX: D64.9 Anemia, unspecified (principal); K25.9 Gastric ulcer, unspecified as acute or chronic, without hemorrhage or perforation; N18.30 Chronic kidney disease, stage 3 unspecified
CPT/HCPCS: 80048; 82728; 85025

== ENCOUNTER → 2024-12-26 10:47 | Outpatient (CLI) | payer MEDICARE, OTHER, SELFPAY ==
--- NOTE | 2024-12-26 10:51 | DI.MRI.S_ITS ---
PROCEDURE: MR ENTEROGRAPHY PROTOCOL INDICATIONS: rec: by GI post EGD, colonoscopy. for eval of small Bowel TECHNIQUE: After the ingestion of oral contrast, coronal and axial HASTE, coronal 2-D FLASH in-and [id number] sequences. After the administration of contrast, coronal and axial VIBE or 2-D FLASH with fat saturation sequences acquired through the abdomen and pelvis. Optional diffusion weighted imaging and ADC may be performed. COMPARISON: None. FINDINGS: Image quality: Suboptimal due to motion artifact. Bowel and peritoneum: No abnormal wall thickening. No luminal narrowing with associated upstream dilation. Image quality: Diagnostic. Lung bases: Unremarkable. Liver: No solid mass. Gallbladder: No gallstones or wall thickening. Biliary ducts: No biliary dilation. No evidence of PSC. Pancreas: No ductal dilation. Spleen: Size is within normal limits. Adrenal Glands: No adrenal nodules. Kidneys and Ureters: No hydronephrosis. No solid mass. No complex renal cystic lesion which requires follow up. Peritoneum: No abnormal intraperitoneal fluid. No free air. Ventral Wall: No hernia. Abdominal Nodes: No retroperitoneal or mesenteric adenopathy by size criteria. Vessels: Aorta and inferior vena cava are normal in size. Pelvis: No pelvic mass. Bones: No aggressive osseous abnormality. IMPRESSION: No small bowel strictures. No MRI evidence of active inflammatory bowel disease. Dictated by: Sam Olvera M.D. on 12/26/2024 at 15:08 Approved by: Sam Olvera M.D. on 12/26/2024 at 15:10
== END ==
PROVIDERS: PCP Family Medicine; Referring Provider Family Medicine; Visit Provider Family Medicine
DX: D64.9 Anemia, unspecified (principal); K62.5 Hemorrhage of anus and rectum; K50.90 Crohn's disease, unspecified, without complications; R19.7 Diarrhea, unspecified; R10.13 Epigastric pain; Z87.19 Personal history of other diseases of the digestive system
CPT/HCPCS: 72197; 74183; A9579

== ENCOUNTER → 2025-01-30 09:41 | Outpatient (CLI) | payer MEDICARE, OTHER, SELFPAY | PROVIDERS: PCP Family Medicine; Visit Provider Physician Assistant Medical | DX: S81.801A Unspecified open wound, right lower leg, initial encounter (principal) | CPT/HCPCS: 87070; 87075; 87205 ==

== ENCOUNTER → 2025-02-06 09:09 | Outpatient (CLI) | payer MEDICARE, OTHER, SELFPAY | PROVIDERS: PCP Family Medicine; Referring Provider Physician Assistant Medical; Visit Provider Surgery | DX: L98.8 Other specified disorders of the skin and subcutaneous tissue (principal); S81.801A Unspecified open wound, right lower leg, initial encounter; R60.0 Localized edema; I10 Essential (primary) hypertension; M19.90 Unspecified osteoarthritis, unspecified site; J45.909 Unspecified asthma, uncomplicated | CPT/HCPCS: 11042; 99213 ==

== ENCOUNTER → 2025-02-21 11:49 | Outpatient (CLI) | payer MEDICARE, OTHER, SELFPAY | PROVIDERS: PCP Family Medicine; Referring Provider Family Medicine; Visit Provider Surgery | DX: S81.801A Unspecified open wound, right lower leg, initial encounter (principal); L98.8 Other specified disorders of the skin and subcutaneous tissue; R60.0 Localized edema | CPT/HCPCS: 11042 ==

== ENCOUNTER → 2025-02-26 11:36 | Outpatient (CLI) | payer MEDICARE, OTHER, SELFPAY ==
[2025-02-26 18:44] LABS: Hematocrit 36.5 % (36-46); Hemoglobin 12.3 g/dL (12.0-16.0)
[2025-02-26 19:04] LABS: BUN Creatinine Ratio 20.9 (6-22); Blood Urea Nitrogen 19 mg/dL (7-17); Calcium 8.9 mg/dL (8.4-10.2); Carbon Dioxide 21 mmol/L (22-32); Chloride 109 mmol/L (98-107); Estimated Glomerular Filt Rate > 60 mL/min (>60); Glucose 94 mg/dL (70-99); HEMOLYSIS < 15 (0-50); Potassium 4.3 mmol/L (3.4-5.1); Sodium 139 mmol/L (137-145)
[2025-02-26 19:10] LABS: Appearance Urine UA CLEAR; Bilirubin Urine UA NEGATIVE (NEGATIVE); Color Urine UA YELLOW; Glucose Urine UA NEGATIVE (Negative); Ketones Urine UA TRACE (NEGATIVE); Leukocyte Esterase Urine UA NEGATIVE (NEGATIVE); Nitrite Urine UA NEGATIVE (Negative); Occult Blood Urine UA NEGATIVE (Negative); Protein Urine UA NEGATIVE (Negative); Specific Gravity Urine UA 1.025 (1.000-1.035); Urobilinogen Urine UA 0.2 E.U./dL (0.2)
[2025-02-26 19:25] LABS: pH Urine UA 5.5 (4.5-8.0)
[2025-02-26 19:38] LABS: Ferritin 55 ng/mL (11-264)
[2025-02-26 19:40] LABS: Amorphous Sediment Urine 1+; Bacteria Urine Few (2-10); Culture Indicated Urine Cult Not Indicated; RBC Urine 1-5/HPF (0-5/HPF); Squamous Epithelial Cell Urine 1-5 /HPF (0-5/HPF); Urine Volume Low Vol <10mL (spun); WBC Urine 1-5/HPF (0-5/HPF)
[2025-02-26 19:51] LABS: Creatinine Urine Random 210.08 mg/dL
[2025-02-26 19:58] LABS: Microalbumin Urine Random 1.1 mg/dL (0-1.6)
== END ==
PROVIDERS: PCP Family Medicine; Visit Provider Family Medicine
DX: D64.9 Anemia, unspecified (principal); N18.30 Chronic kidney disease, stage 3 unspecified; K25.9 Gastric ulcer, unspecified as acute or chronic, without hemorrhage or perforation; R76.8 Other specified abnormal immunological findings in serum; E53.8 Deficiency of other specified B group vitamins; I12.9 Hypertensive chronic kidney disease with stage 1 through stage 4 chronic kidney disease, or unspecified chronic kidney disease
CPT/HCPCS: 80048; 81001; 82043; 82570; 82728; 85014; 85018

== ENCOUNTER → 2025-03-07 11:30 | Outpatient (CLI) | payer MEDICARE, OTHER, SELFPAY | LOC: WC 11:31 | PROVIDERS: PCP Family Medicine; Referring Provider Family Medicine; Visit Provider Surgery | DX: S81.801A Unspecified open wound, right lower leg, initial encounter (principal); L98.8 Other specified disorders of the skin and subcutaneous tissue; R23.4 Changes in skin texture; R60.0 Localized edema; M13.80 Other specified arthritis, unspecified site | CPT/HCPCS: 97602; 99213 ==

== ENCOUNTER → 2025-03-20 11:04 | Outpatient (CLI) | payer MEDICARE, OTHER, SELFPAY | PROVIDERS: PCP Family Medicine; Referring Provider Family Medicine; Visit Provider Surgery | DX: S81.811A Laceration without foreign body, right lower leg, initial encounter (principal) | CPT/HCPCS: 97602; 99213 ==

== ENCOUNTER → 2025-04-03 16:26 | Outpatient (CLI) | payer MEDICARE, OTHER, SELFPAY | LOC: WC 16:28 | PROVIDERS: PCP Family Medicine; Referring Provider Family Medicine; Visit Provider Surgery | DX: S81.811D Laceration without foreign body, right lower leg, subsequent encounter (principal) | CPT/HCPCS: 99212; 99213 ==

== ENCOUNTER → 2025-05-09 13:34 | Outpatient (CLI) | payer MEDICARE, OTHER, SELFPAY ==
[2025-05-09 21:00] LABS: Add Manual Diff / Slide Review NO; Hematocrit 35.9 % (36-46); Hemoglobin 12.3 g/dL (12.0-16.0); Lymphocytes Absolute Auto 1400 /uL (1100-4500); Mean Corpuscular HGB Conc 34.1 % (30-36); Mean Corpuscular Hemoglobin 33.1 PG (26-34); Mean Corpuscular Volume 97.1 fL (80-100); Platelet Count 274 X10^3/uL (150-400)
[2025-05-09 21:04] LABS: Blood Urea Nitrogen 35 mg/dL (7-17); Calcium 9.7 mg/dL (8.4-10.2); Carbon Dioxide 21 mmol/L (22-32); Chloride 106 mmol/L (98-107); Estimated Glomerular Filt Rate 47 mL/min (>60); Glucose 79 mg/dL (70-99); HEMOLYSIS < 15 (0-50); Potassium 4.6 mmol/L (3.4-5.1); Sodium 138 mmol/L (137-145)
== END ==
PROVIDERS: PCP Family Medicine; Visit Provider Family Medicine
DX: R76.8 Other specified abnormal immunological findings in serum (principal); D64.9 Anemia, unspecified; M25.50 Pain in unspecified joint
CPT/HCPCS: 80048; 85025; 85651; 86038; 86140; 86200; 86430

== ENCOUNTER → 2025-06-06 11:20 | Outpatient (CLI) | payer MEDICARE, OTHER, SELFPAY ==
--- NOTE | 2025-06-06 11:21 | DI.MRI.S_ITS ---
PROCEDURE: MR LUMBAR SPINE WO CON INDICATIONS: Lumbar Radic TECHNIQUE: Noncontrast sagittal T1 spin echo and T2 fast echo, sagittal STIR, and T2 fast spin echo through the lumbar spine. In cases with scoliosis, additional coronal T2 fast spin echo may be performed. COMPARISON: [facility], CR, XR LUMBAR SPINE MIN 4V, 06/06/2025, 11:11. FINDINGS: Image quality: Diagnostic Alignment and Curvature: Aoiz-zj-tuknvwma leftward spinal curvature centered in the mid lumbar spine Trace anterolisthesis of L3 on L4. Trace anterolisthesis of L5 on S1. Bone Marrow: Nonacute height loss at T11. Multilevel disc desiccation. No acute fracture related edema Spinal Cord: Cord terminates in expected position overall normal appearance of the cauda equina nerve roots, other than clumping within areas of stenosis. Paraspinous Soft Tissues: No paravertebral fluid collection or mass is seen T12-L1: Mild diffuse disc bulge and facet arthropathy. No stenosis. L1-L2: Mild diffuse disc bulge. Moderate bilateral facet arthropathy. Mild left neural foraminal narrowing. L2-L3: Moderate diffuse disc bulge and left foraminal protrusion. Moderate to severe facet arthropathy. Mild central narrowing particularly affecting the right subarticular recess. Ligamentum flavum hypertrophy. Moderate to severe left and moderate right neural foraminal narrowing. L3-L4: Central protrusion and moderate superimposed bulge. Facet arthropathy. Severe central narrowing. Ligamentum hypertrophy with prominent epidural fat also seen. Vlvf-up-xwurrtsy left and moderate right neural foraminal narrowing. L4-L5: Central protrusion. Moderate to severe facet arthropathy. Moderate diffuse disc bulge. Moderate to severe central narrowing. Ligamentum hypertrophy Moderate bilateral neural foraminal narrowing. L5-S1: Asymmetric left-sided disc bulge. Moderate severe facet arthropathy. Raqi-ww-qluhwvta central narrowing affecting the left subarticular recess asymmetrically. Moderate left and mild right neural foraminal narrowing. IMPRESSION: Advanced degenerative changes as above, with areas of stenoses from L2-L5 Leftward spinal curvature and multilevel trace spondylolisthesis also present. Nonacute appearing height loss of T11. Dictated by: Johnny Chiang M.D. on 06/07/2025 at 10:55 Approved by: Johnny Chiang M.D. on 06/07/2025 at 11:00
--- NOTE | 2025-06-06 12:03 | DI.RAD.S_ITS ---
PROCEDURE: XR LUMBAR SPINE MIN 4V INDICATIONS: Lumbar radiculopathy TECHNIQUE: 5 views of the lumbar spine were acquired, including bilateral oblique views. COMPARISON: None. FINDINGS: Lumbar spine curvature and alignment: Moderate levoscoliosis of lumbar spine and grade 1 L5-S1 spondylolisthesis due to degenerate facet disease appreciated. Bones: There are no osseous abnormalities. Disc spaces: Moderate T12-L1 through L3-4 , severe L4-5 , mild L5-S1 degenerative disc disease noted. Mild L3-4 severe L4-5 and severe L5-S1 degenerative facet disease Soft tissues: No soft tissue swelling, calcification or mass. IMPRESSION: Degeneration Dictated by: Josh Lakhani M.D. on 06/07/2025 at 9:13 Approved by: Josh Lakhani M.D. on 06/07/2025 at 9:15
== END ==
LOC: MRI 11:21
PROVIDERS: PCP Family Medicine; Referring Provider Physical Medicine & Rehabilitation; Visit Provider Physical Medicine & Rehabilitation
DX: M51.16 Intervertebral disc disorders with radiculopathy, lumbar region (principal); M47.26 Other spondylosis with radiculopathy, lumbar region; M48.061 Spinal stenosis, lumbar region without neurogenic claudication; M51.17 Intervertebral disc disorders with radiculopathy, lumbosacral region; M47.27 Other spondylosis with radiculopathy, lumbosacral region; M48.07 Spinal stenosis, lumbosacral region
CPT/HCPCS: 72110; 72148

== ENCOUNTER → 2025-08-21 14:36 | Outpatient (CLI) | payer MEDICARE, OTHER, SELFPAY ==
[2025-08-21 19:30] LABS: Hematocrit 35.1 % (36-46); Hemoglobin 11.8 g/dL (12.0-16.0); Mean Corpuscular HGB Conc 33.7 % (30-36); Mean Corpuscular Hemoglobin 32.4 PG (26-34); Mean Corpuscular Volume 96.2 fL (80-100); Platelet Count 300 X10^3/uL (150-400)
[2025-08-21 19:43] LABS: Alanine Aminotransferase 18 IU/L (<35); Albumin 4.2 g/dL (3.5-5.0); Albumin Globulin Ratio 1.5 (1.0-2.8); Alkaline Phosphatase 92 U/L (38-126); Blood Urea Nitrogen 42 mg/dL (7-17); Calcium 9.1 mg/dL (8.4-10.2); Carbon Dioxide 20 mmol/L (22-32); Chloride 106 mmol/L (98-107); Estimated Glomerular Filt Rate 31 mL/min (>60); Globulin 2.8 g/dL (1.7-4.1); Glucose 96 mg/dL (70-99); HEMOLYSIS < 15 (0-50); Potassium 4.4 mmol/L (3.4-5.1); Sodium 137 mmol/L (137-145); Total Protein 7.0 g/dL (6.3-8.2)
[2025-08-21 20:20] LABS: Vitamin D 25 Hydroxy (D3) 39.8 ng/mL (30.0-100.0)
[2025-08-21 20:21] LABS: Ferritin 76 ng/mL (11-264)
== END ==
PROVIDERS: PCP Family Medicine; Visit Provider Family Medicine
DX: N18.32 Chronic kidney disease, stage 3b (principal); D64.9 Anemia, unspecified; M81.0 Age-related osteoporosis without current pathological fracture
CPT/HCPCS: 80053; 82306; 82728; 85027

== ENCOUNTER → 2025-10-14 13:38 | Outpatient (CLI) | payer MEDICARE, OTHER, SELFPAY ==
[2025-10-14 18:46] LABS: Hematocrit 36.3 % (36-46); Hemoglobin 12.2 g/dL (12.0-16.0); Mean Corpuscular HGB Conc 33.6 % (30-36); Mean Corpuscular Hemoglobin 32.8 PG (26-34); Mean Corpuscular Volume 97.6 fL (80-100); Platelet Count 361 X10^3/uL (150-400)
[2025-10-14 18:51] LABS: HEMOLYSIS 21 (0-50); Iron 142 ug/dL (37-170)
[2025-10-14 18:53] LABS: Blood Urea Nitrogen 23 mg/dL (7-17); Calcium 9.2 mg/dL (8.4-10.2); Carbon Dioxide 21 mmol/L (22-32); Chloride 106 mmol/L (98-107); Estimated Glomerular Filt Rate 55 mL/min (>60); Glucose 82 mg/dL (70-99); HEMOLYSIS 25 (0-50); Potassium 4.3 mmol/L (3.4-5.1); Sodium 137 mmol/L (137-145)
[2025-10-14 19:03] LABS: Percent Iron Saturation 48 % (15-50); Total Iron Binding Capacity 293 ug/dL (265-497); Transferrin 274 mg/dL (206-381)
[2025-10-14 19:27] LABS: Ferritin 55 ng/mL (11-264)
[2025-10-14 21:06] LABS: Folate 8.5 ng/mL (2.76-20.0)
[2025-10-15 20:31] LABS: Vitamin B12 769 pg/mL (239-931)
== END ==
PROVIDERS: PCP Family Medicine; Visit Provider Family Medicine
DX: D64.9 Anemia, unspecified (principal); I12.9 Hypertensive chronic kidney disease with stage 1 through stage 4 chronic kidney disease, or unspecified chronic kidney disease; N18.32 Chronic kidney disease, stage 3b; E53.8 Deficiency of other specified B group vitamins; K25.4 Chronic or unspecified gastric ulcer with hemorrhage; T39.395A Adverse effect of other nonsteroidal anti-inflammatory drugs [NSAID], initial encounter
CPT/HCPCS: 80048; 82607; 82728; 82746; 83540; 83550; 85027